=== PATIENT | female | born 1950 | race Caucasian/White ===

== ENCOUNTER 2020-10-10 23:23 | Outpatient (CLI) | payer MEDICARE | END 2020-10-10 23:24 | disposition EMS.NT | LOC: EMS 23:23 | PROVIDERS: ATTEND Surgery | DX: R11.2 Nausea with vomiting, unspecified (principal); M79.89 Other specified soft tissue disorders ==

== ENCOUNTER 2020-10-11 00:54 | Emergency (ER) | payer MEDICARE, OTHER ==
[2020-10-11 01:32] LABS: BASOPHILS % (AUTO) 0.5 %; EOSINOPHILS % (AUTO) 0.2 %; HGB - HEMOGLOBIN 14.1 g/dL (12.0-16.0); LYMPHOCYTES # (AUTO) 0.6 10^3/uL (1.5-3.5); LYMPHOCYTES % (AUTO) 9.1 %; MEAN CORPUSCULAR HEMOGLOBIN 30.3 pg (27.0-31.0); MEAN CORPUSCULAR HGB CONC 33.9 g/dL (32.0-36.0); MEAN CORPUSCULAR VOLUME 89.5 fL (81.0-99.0); MEAN PLATELET VOLUME 10.4 fL (7.9-10.8); MONOCYTES # (AUTO) 0.4 10^3/uL (0.0-1.0); MONOCYTES % (AUTO) 6.3 %; NEUTROPHILS # (AUTO) 5.3 10^3/uL (1.5-6.6); NEUTROPHILS % (AUTO) 83.6 %; PLT - PLATELET COUNT 147 10^3/uL (130-450); RED BLOOD COUNT 4.65 10^6/uL (4.20-5.40); RED CELL DISTRIBUTION WIDTH 12.5 % (12.0-15.0); WHITE BLOOD COUNT 6.4 x10^3/uL (4.8-10.8)
[2020-10-11 01:46] LABS: ALBUMIN 3.9 g/dL (3.2-5.5); ALBUMIN/GLOBULIN RATIO 1.3 (1.0-2.2); BILIRUBIN,TOTAL 1.3 mg/dL (0.2-1.0); CREATININE 0.9 mg/dL (0.4-1.0); TOTAL PROTEIN 6.8 g/dL (6.7-8.2)
[2020-10-11] MEDS ORDERED: SODIUM CHLORIDE 0.9% 1,000 ML IV STA (03:02)
[2020-10-11] MEDS ORDERED: DEXAMETHASONE 10 MG/ML VIAL IVP STA (03:02)
[2020-10-11] MEDS ORDERED: cefTRIAXone 1 GM in SODIUM CHLORIDE 0.9% MINIBAG 100 ML IV STA (03:03)
--- NOTE | 2020-10-11 03:03 | ED Physician Documentation ---
History of Present Illness - Stated complaint Stated Complaint: MED REACTION - Chief complaint Chief Complaint: General - History obtained from History obtained from: Patient, Family - History of Present Illness Timing: Today - Additonal information Additional information: Previously well 70-year-old female went into see her doctor this morning at about 9:30 in the morning and she had immunizations including a tetanus booster shingles shot and a Pneumovax. She felt well and went home started to do some mowing and yard work. At about 2:30 in the afternoon she began to not feel well and she went into lay down and spent the rest the afternoon in the house and when they went to get ready for bed in the evening she became quite ill had to have assistance by her partner to get into her close and then she vomited and had a syncopal episode. She has myalgias, a fever and swelling and pain in the left arm. Review of Systems Constitutional: reports: Fever, Myalgias, Fatigue Eyes: denies: Decreased vision Ears: denies: Ear pain Nose: denies: Rhinorrhea / runny nose, Congestion Throat: denies: Sore throat Cardiac: denies: Chest pain / pressure, Palpitations Respiratory: denies: Dyspnea, Cough GI: reports: Nausea, Vomiting. denies: Abdominal Pain : denies: Dysuria, Frequency Skin: denies: Rash Musculoskeletal: reports: Extremity pain, Extremity swelling. denies: Neck pain, Back pain Neurologic: reports: Generalized weakness, Syncope, Altered mental status (resolved). denies: Focal weakness, Numbness, Seizure PD PAST MEDICAL HISTORY - Past Medical History Past Medical History: Yes Cardiovascular: Atrial flutter - Past Surgical History Past Surgical History: No - Present Medications Home Medications: Ambulatory Orders Medication Instructions Recorded Confirmed Amox/Clav 875/125 [Augmentin] 1 each PO Q12H #14 tablet 10/11/20 - Allergies Allergies/Adverse Reactions: Allergies Allergy/AdvReac Type Severity Reaction Status Date / Time No Known Drug Allergies Allergy Verified 10/11/20 01:10 - Social History Does the pt smoke?: No Smoking Status: Never smoker Does the pt drink ETOH?: Yes Does the pt have substance abuse?: No - Immunizations Immunizations are current?: Yes - POLST Patient has POLST: No PD ED PE NORMAL - Vitals Vital signs reviewed: Yes (normal ) - General General: Alert and oriented X 3, No acute distress, Well developed/nourished - HEENT HEENT: Atraumatic, PERRL, EOMI - Neck Neck: Supple, no meningeal sign, No bony TTP - Cardiac Cardiac: RRR, No murmur - Respiratory Respiratory: No respiratory distress, Clear bilaterally - Abdomen Abdomen: Normal bowel sounds, Soft, Non tender, Non distended, No organomegaly - Back Back: No CVA TTP, No spinal TTP - Derm Derm: Normal color, Warm and dry, No rash - Extremities Extremities: No deformity, Other (There are 2 spot bandaids to the left deltoid and one to the right. The left arm is swollen, warm and tender. ) - Neuro Neuro: Alert and oriented X 3, home staging specialist 2-12 intact, No motor deficit, No sensory deficit, Normal speech Eye Opening: Spontaneous Motor: Obeys Commands Verbal: Oriented GCS Score: 15 - Psych Psych: Normal mood, Normal affect Results - Vitals Vitals: Vital Signs - 24 hr 10/11/20 10/11/20 10/11/20 01:06 01:12 03:10 Temperature 36.1 C L 36.1 C L 36.2 C L Heart Rate 68 72 65 Respiratory 18 18 16 Rate Blood Pressure 124/69 124/69 110/66 O2 Saturation 100 100 98 Oxygen O2 Source Room air - EKG (time done) 0107 Rate: Rate (enter#) (61) Rhythm: NSR Ischemia: Non specific changes Compare to prior EKG: Old EKG unavailable Computer interpretation: Agree with computer - Labs Labs: Laboratory Tests 10/11/20 10/11/20 10/11/20 01:22 01:30 01:30 WBC 6.4 RBC 4.65 Hgb 14.1 Hct 41.6 MCV 89.5 MCH 30.3 MCHC 33.9 RDW 12.5 Plt Count 147 MPV 10.4 Neut # (Auto) 5.3 Lymph # (Auto) 0.6 L [place] # (Auto) 0.4 Eos # (Auto) 0.0 Baso # (Auto) 0.0 Absolute Nucleated RBC 0.00 Nucleated RBC % 0.0 Sodium 134 L Potassium 3.7 Chloride 98 L Carbon Dioxide 23 Anion Gap 13.0 BUN 17 Creatinine 0.9 Estimated GFR (MDRD) 62 L Glucose 138 H POC Whole Bld Glucose 135 H Calcium 9.0 Total Bilirubin 1.3 H AST 17 ALT 17 Alkaline Phosphatase 44 Troponin I High Sens Total Protein 6.8 Albumin 3.9 Globulin 2.9 Albumin/Globulin Ratio 1.3 Lipase 33 10/11/20 01:30 WBC RBC Hgb Hct MCV MCH MCHC RDW Plt Count MPV Neut # (Auto) Lymph # (Auto) [place] # (Auto) Eos # (Auto) Baso # (Auto) Absolute Nucleated RBC Nucleated RBC % Sodium Potassium Chloride Carbon Dioxide Anion Gap BUN Creatinine Estimated GFR (MDRD) Glucose POC Whole Bld Glucose Calcium Total Bilirubin AST ALT Alkaline Phosphatase Troponin I High Sens 2.8 Total Protein Albumin Globulin Albumin/Globulin Ratio Lipase Procedures - IVC sono (time) 0300 Bedside IVC sono: IVC measures (cm) (1.00), IVC collapsed c insp (cm) (complete), Dehydration (est 1+ liter deficit) PD MEDICAL DECISION MAKING - ED course Complexity details: reviewed results, re-evaluated patient, considered differential, d/w patient, d/w family ED course: Previously well 70-year-old female who had immunizations done this morning has developed what appears to be either a reaction to the immunization itself or an infection to the arm. The most notable is component of the examination is the arm itself it is swollen it is warm to the touch from the elbow to the shoulder and the swelling is from the elbow to the shoulder there is minimal erythema associated with this. This is not localized just to the area of the injection. My concern with this is infection. She is treated in the emergency department with dexamethasone a liter of fluid and a gram of Rocephin intravenously. She did not have elevated white blood cell count but I still felt it important to treat with the antibiotic as well. I discussed these findings with the patient and she is in agreement. Departure - Departure Disposition: 01 Home, Self Care Clinical Impression: Post-immunization reaction Qualifiers: Encounter type: initial encounter Qualified Code(s): T88.1XXA - Other complications following immunization, not elsewhere classified, initial encounter Cellulitis Qualifiers: Site of cellulitis: extremity Site of cellulitis of extremity: upper extremity Laterality: left Qualified Code(s): L03.114 - Cellulitis of left upper limb Condition: Stable Instructions: ED Infec Skin Cellulitis Follow-Up: Kierra Tay MD [Primary Care Provider] - Prescriptions: Amox/Clav 875/125 [Augmentin] 1 each PO Q12H #14 tablet
[2020-10-11] MEDS ORDERED: cefTRIAXone 1 GM VIAL ONE (03:16)
[2020-10-11 04:17] VITALS: BP 114/62
== END 2020-10-11 04:24 | disposition home or self-care (01) ==
LOC: ED 00:54
DX: T88.0XXA Infection following immunization, initial encounter (principal); L03.114 Cellulitis of left upper limb; Y84.8 Other medical procedures as the cause of abnormal reaction of the patient, or of later complication, without mention of misadventure at the time of the procedure; E86.0 Dehydration
CPT/HCPCS: 36415; 80053; 83690; 84484; 85025; 93005; 96365; 96375; 99284

== ENCOUNTER 2023-04-20 08:40 | Outpatient (CLI) | payer MEDICARE ==
[2023-04-20 15:03] LABS: THYROID STIMULATING HORMONE 2.54 uIU/mL (0.34-5.60)
[2023-04-20 21:00] LABS: ESTIMATED AVERAGE GLUCOSE 108 mg/dL (70-100); HEMOGLOBIN A1c% 5.4 % (4.27-6.07)
== END 2023-04-20 08:41 | disposition home or self-care (01) ==
LOC: LAB.S 08:40
PROVIDERS: ATTEND Internal Medicine
DX: Z13.228 Encounter for screening for other metabolic disorders (principal); Z13.29 Encounter for screening for other suspected endocrine disorder
CPT/HCPCS: 36415; 83036; 84443

== ENCOUNTER 2023-11-08 10:44 | Outpatient (CLI) | payer MEDICARE ==
[2023-11-08 15:25] LABS: BASOPHILS # (AUTO) 0.1 10^3/uL (0.0-0.1); EOSINOPHILS # (AUTO) 0.2 10^3/uL (0.0-0.7); HCT - HEMATOCRIT 42.8 % (37.0-47.0); HGB - HEMOGLOBIN 14.1 g/dL (12.0-16.0); LYMPHOCYTES # (AUTO) 1.8 10^3/uL (1.5-3.5); LYMPHOCYTES % (AUTO) 36.5 %; MEAN CORPUSCULAR HEMOGLOBIN 30.2 pg (27.0-31.0); MEAN CORPUSCULAR HGB CONC 32.9 g/dL (32.0-36.0); MEAN CORPUSCULAR VOLUME 91.6 fL (81.0-99.0); MEAN PLATELET VOLUME 11.3 fL (7.9-10.8); MONOCYTES # (AUTO) 0.6 10^3/uL (0.0-1.0); MONOCYTES % (AUTO) 11.5 %; NEUTROPHILS # (AUTO) 2.3 10^3/uL (1.5-6.6); NEUTROPHILS % (AUTO) 46.8 %; PLT - PLATELET COUNT 178 10^3/uL (130-450); RED BLOOD COUNT 4.67 10^6/uL (4.20-5.40); RED CELL DISTRIBUTION WIDTH 13.1 % (12.0-15.0); WHITE BLOOD COUNT 4.8 x10^3/uL (4.8-10.8)
[2023-11-08 15:50] LABS: ALBUMIN 4.4 g/dL (3.2-5.5); ALBUMIN/GLOBULIN RATIO 1.5 (1.0-2.2); ALKALINE PHOSPHATASE 49 IU/L (42-121); ALT ALANINE AMINOTRANSFERASE 17 IU/L (10-60); AST ASPARTATE AMINOTRANSFERASE 19 IU/L (10-42); BILIRUBIN,TOTAL 0.6 mg/dL (0.2-1.0); BUN - BLOOD UREA NITROGEN 15 mg/dL (6-20); CALCIUM 10.2 mg/dL (8.5-10.3); CARBON DIOXIDE - CO2 31 mmol/L (21-32); CHLORIDE 104 mmol/L (101-111); CHOL/HDL RATIO 2.9 (<4.4); CHOLESTEROL 234 mg/dL; CREATININE 0.8 mg/dL (0.6-1.3); GFR - MDRD 70 (>89); GLUCOSE 95 mg/dL (74-104); HDL CHOLESTEROL 81 mg/dL; LDL CHOLESTEROL,CALCULATED 137 mg/dL; LDL/HDL RATIO 1.7 (<4.4); SODIUM 139 mmol/L (135-145); TOTAL PROTEIN 7.4 g/dL (6.4-8.9); TRIGLYCERIDES 81 mg/dL (48-352); VLDL CHOLESTEROL 16 mg/dL
== END 2023-11-08 10:45 | disposition home or self-care (01) ==
LOC: LAB.S 10:44
PROVIDERS: ATTEND Internal Medicine
DX: Z00.00 Encounter for general adult medical examination without abnormal findings (principal); I48.91 Unspecified atrial fibrillation; Z13.228 Encounter for screening for other metabolic disorders; Z13.220 Encounter for screening for lipoid disorders
CPT/HCPCS: 36415; 80053; 80061; 83721; 85025

== ENCOUNTER 2023-12-26 07:29 | Outpatient (CLI) | payer MEDICARE, OTHER | END 2023-12-26 23:59 | disposition critical access hospital (66) | LOC: EMS 07:29 | DX: R51.9 Headache, unspecified (principal) ==

== ENCOUNTER 2024-05-30 14:29 | Outpatient (CLI) | payer MEDICARE, OTHER | END 2024-05-30 14:30 | disposition home or self-care (01) | LOC: LAB.WCP 14:29 → LAB.S 14:30 | PROVIDERS: ATTEND Emergency Medicine | DX: L72.3 Sebaceous cyst (principal) | CPT/HCPCS: 87070; 87205 ==